=== PATIENT | female | born 1980 | race Caucasian/White ===

== ENCOUNTER → 2019-07-28 17:29 | Outpatient (CLI) | payer OTHER ==
[~2019-07-28 17:29] MED LIST: ALBUTEROL SULF8.5 GM INH; BUSPAR5 MG PO; DOXYCYCLINE HY100 M2 PO; ELAVIL10 MG PO; GLUCOPHAGE1000 MG PO; HYDRALAZINE HCL10 MG PO; INDERAL 40 MG T40 MG PO; NEURONTIN600 MG PO; ROBAXIN500 MG PO
== END | disposition home or self-care (01) ==
LOC: D.LABREF 17:29
PROVIDERS: ATTEND Internal Medicine Gastroenterology
DX: K74.60 Unspecified cirrhosis of liver (principal)

== ENCOUNTER 2019-08-29 19:36 | Emergency (ER) | payer OTHER ==
[~2019-08-29] VITALS: Ht 172.7 cm; Wt 90.9 kg
[2019-08-29 20:08] VITALS: Ht 172.7 cm; Wt 90.9 kg
[2019-08-29] MEDS ORDERED: ELAVIL10 MG PO (20:12)
[2019-08-29] MEDS ORDERED: NEURONTIN600 MG PO (20:12)
[2019-08-29] MEDS ORDERED: GLUCOPHAGE1000 MG PO (20:12)
[2019-08-29] MEDS ORDERED: INDERAL 40 MG T40 MG PO (20:12)
[2019-08-29] MEDS ORDERED: ROBAXIN500 MG PO (20:13)
[2019-08-29] MEDS ORDERED: HYDRALAZINE HCL10 MG PO (20:13)
[2019-08-29] MEDS ORDERED: BUSPAR5 MG PO (20:14)
[2019-08-29 20:36] LABS: BASOPHILS 0.3 % (0-2); EOSINOPHILS 0.6 % (0-7); HEMATOCRIT 45.2 % (36.0-48.0); HEMOGLOBIN 15.1 g/dL (12-16); IMMATURE GRANULOCYTES 0.3 % (0-5); LYMPHOCYTES 23.2 % (15-50); MCH 28.8 pg (26.0-34.0); MCHC 33.4 g/dL (31.0-37.0); MCV 86.3 fL (80.0-100.0); MEAN PLATELET VOLUME 9.7 fL (7.4-10.4); MONOCYTES 7.6 % (2-11); PLATELET COUNT 268 10x3/uL (130-400); RBC 5.24 10x6/uL (4.00-5.40); RDW 13.4 % (11.5-14.5); WBC 7.3 10x3/uL (4.8-10.8)
[2019-08-29 20:38] LABS: APPEARANCE CLEAR (CLEAR); BILIRUBIN NEGATIVE (NEGATIVE); COLOR YELLOW (YELLOW); GLUCOSE NEGATIVE (NEGATIVE); KETONE NEGATIVE (NEGATIVE); NITRITE NEGATIVE (NEGATIVE); PROTEIN NEGATIVE (NEGATIVE); UROBILINOGEN NORMAL (NORMAL)
[2019-08-29 20:42] LABS: ANION GAP 12.3 mmol/L (8-16); CALCIUM 8.8 mg/dL (8.5-10.1); CARBON DIOXIDE 27.9 mmol/L (21.0-32.0); CREATININE - SERUM 0.9 mg/dL (0.6-1.3); POTASSIUM - SERUM 4.2 mmol/L (3.5-5.1)
[2019-08-29 20:54] LABS: ALBUMIN 3.8 g/dL (3.4-5.0); BILIRUBIN - TOTAL 0.35 mg/dL (0.2-1.3); PROTEIN - SERUM 8.3 g/dL (6.4-8.2)
[2019-08-29] MEDS ORDERED: DOXYCYCLINE HY100 M2 PO (21:09)
[2019-08-29] MEDS ORDERED: ALBUTEROL SULF8.5 GM INH (21:09)
[2019-08-29 21:23] VITALS: BP 130/89
== END 2019-08-29 21:28 | disposition home or self-care (01) ==
LOC: D.ER 19:36
PROVIDERS: Family Medicine
DX: J20.9 Acute bronchitis, unspecified (principal); E11.9 Type 2 diabetes mellitus without complications; I10 Essential (primary) hypertension; F17.210 Nicotine dependence, cigarettes, uncomplicated